=== PATIENT | male | born 1985 | race Caucasian/White ===

== ENCOUNTER 2018-03-31 13:17 | Emergency (ER) | payer MEDICAID ==
[2018-03-31] MEDS ORDERED: 0.9 % SODIUM CHLORIDE 1,000 ML BAG IV ONE (13:40)
[2018-03-31] MEDS ORDERED: ACETAMINOPHEN 1,000 MG/100 ML BTL IVPB ONE (13:44)
--- NOTE | 2018-03-31 13:44 | Emergency Department Record ---
History of Present Illness - General Chief Complaint: Chest Pain Stated Complaint: CHEST PAIN Time Seen by Provider: 03/31/18 13:33 Source: Patient Mode of Arrival: Stretcher Limitations: No limitations - History of Present Illness Initial Comments: The patient is here due to possibly passing out at home an hour ago or so. He had recently run out of his Methadone that he takes for chronic chest pain and developed R sided sharp stabbing pain. He then felt like he was warm all over and lightheaded and called 911. He later thinks he may have woke up on the floor. There is no reported head injury or neck pain. He also denied any SOB, RONN, or sweating. The patient has no cardiac hx but has been nauseated since running out of his narcotics. MD Complaint: Chest pain Onset/Timin -: Hour(s) Pain Location: Substernal Severity scale (1-10): 3 Quality: Dull Consistency: Constant Improves With: Nothing Worsens With: Nothing - Related Data Allergies Allergy/AdvReac Type Severity Reaction Status Date / Time amoxicillin trihydrate Allergy RASH Verified 03/31/18 13:32 [From Augmentin] potassium clavulanate Allergy RASH Verified 03/31/18 13:32 [From Augmentin] Travel Screening - Travel/Exposure Within Last 30 Days Have you traveled within the last 30 days?: No - Travel/Exposure Within Last Year Have you traveled outside the [place] in the last year?: No - Additonal Travel Details Have you been exposed to anyone with a communicable illness?: No - Travel Symptoms Symptom Screening: None Review of Systems Constitutional: Denies: Chills, Fever Eyes: Denies: Eye discharge ENT: Denies: Congestion Respiratory: Denies: Cough, Dyspnea Past Medical History - SOCIAL HISTORY Smoking Status: Current every day smoker Alcohol Use: Rare Drug Use: Occasional Drug Use Detail:: Marijuana - RESPIRATORY Hx Respiratory Disorders: Yes Hx Pneumonia: Yes - CARDIOVASCULAR Hx Cardio Disorders: No - NEURO Hx Neuro Disorders: Yes Hx Headaches: Yes Comment:: right rib injury when younger-"feels like sharp pain rubs on nerve" - GI Hx GI Disorders: Yes Hx Wt Loss/Wt Gain: Yes (50 lbs gain "over a few yrs") - Hx Genitourinary Disorders: No - ENDOCRINE Hx Endocrine Disorders: No - MUSCULOSKELETAL Hx Musculoskeletal Disorders: Yes - PSYCH Hx Psych Problems: No - HEMATOLOGY/ONCOLOGY Hx Hematology/Oncology Disorders: No Family Medical History Any Significant Family History?: No Hx Seizures: Mother *Seizure Comment: nonepileptic Physical Exam - General General Appearance: Alert, Oriented x3, Cooperative, No acute distress - Head Head exam: Atraumatic, Normocephalic, Normal inspection - Eye Eye exam: Normal appearance, PERRL, EOMI - ENT Throat exam: Normal inspection. negative: Tonsillar erythema, Tonsillar exudate - Neck Neck exam: Normal inspection, Full ROM. negative: Tenderness - Respiratory Respiratory exam: Normal lung sounds bilaterally, Chest wall tenderness (The R anterior chest wall tenderness is very reproducible to palpation.). negative: Respiratory distress - Cardiovascular Cardiovascular Exam: Regular rate, Normal rhythm, Normal heart sounds - GI/Abdominal GI/Abdominal exam: Soft, Normal bowel sounds. negative: Tenderness - Extremities Extremities exam: Normal inspection, Full ROM, Normal capillary refill. negative: Calf tenderness, Pedal edema, Tenderness - Neurological Neurological exam: Alert, Normal gait, Oriented X3. negative: Abnormal gait, Altered, Motor sensory deficit - Psychiatric Psychiatric exam: negative: Anxious, Depressed Course Vital Signs 03/31/18 13:22 Temperature 98.1 F Pulse Rate 81 Respiratory 18 Rate Blood Pressure 146/99 Pulse Ox 100 - Reevaluation(s) Reevaluation #1: The patient is resting more comfortably at this time. He is still having his chronic CP and does still have very significant chest wall tenderness over his sternum. 03/31/18 16:16 Reevaluation #2: The patient is doing very well at this time. He is up walking with no problems and is very hemodynamically stable. He has had no further dizziness or lightheadedness but still has the significant chest wall pain. His 2nd EKG is normal also. Due to his evaluation not demonstrating any serious cause for his issues he is very stable for discharge. 03/31/18 17:40 Reevaluation #3: 2nd EKG: NSR at 78, Neg ST-T changes, Normal EKG. 03/31/18 17:42 Reevaluation #4: I did give the patient 2 0.5 mg Ativan pills for home. He is to take them for anxiety and understands that he is not to drive or work taking them. 03/31/18 17:44 Medical Decision Making - Data Complexity MDM Data: Labs Ordered and/or Reviewed, X-Ray Ordered and/or Reviewed, EKG Ordered and/or Reviewed - Lab Data Result diagrams: 03/31/18 13:30 03/31/18 13:30 - EKG Data -: EKG Interpreted by Me (NSR, borderline T changes anterior leads.) - Radiology Data Radiology results: Report reviewed (CXR: Neg per Rad.) Disposition Disposition: Discharge Clinical Impression: Anxiety Disposition: Home, Self-Care Condition: (2) Stable Instructions: Anxiety (ED) Additional Instructions: Please rest and take the Ativan as directed. Please see your family doctor for recheck tomorrow. Return to the ER for any worsening symptoms, pain, dizziness or any further episodes of passing out. Forms: Patient Portal Access Time of Disposition: 17:43 Quality - Quality Measures Quality Measures: N/A - Blood Pressure Screening View Details: Yes Does Patient Have Any of the Following: No Blood Pressure Classification: Hypertensive Reading Systolic Measurement: 146 Diastolic Measurement: 99 Screening for High Blood Pressure: < First Hypertensive BP, F/U Documented > [ [id number]] First Hypertensive Follow-up Interventions: Referral to alternative/primary care provider.
[2018-03-31 14:04] LABS: BASO % 0.2 % (0-6); EOS % 0.5 % (0-6); GRAN % 75.3 % (47-80); HEMOGLOBIN 15.1 gm/dl (14.0-18.0); LYMPH % 17.4 % (16-45); MEAN CELL VOLUME 92.6 fl (81-97); MEAN CORPUSCULAR HEMOGLOBIN 31.1 pg (27-33); MEAN CORPUSCULAR HGB CONC 33.6 g/dl (32-36); MEAN PLATELET VOLUME 11.6 fl (7.4-10.4); MONO % 6.6 % (0-9); PLATELET COUNT 291 K/uL (130-400); RED BLOOD COUNT 4.86 M/uL (4.40-5.70); RED CELL DISTRIBUTION WIDTH 12.5 % (11.5-14.5); WHITE BLOOD COUNT W/O DIFF 9.5 K/uL (4.2-12.2)
[2018-03-31 14:16] LABS: BLOOD UREA NITROGEN 14 mg/dL (6-20); CREATININE 0.7 mg/dL (0.7-1.2); EST GLOMERULAR FILTRATION RATE > 60 mL/min
[2018-03-31 14:17] LABS: TOTAL PROTEIN 7.4 g/dL (6.6-8.7)
[2018-03-31 14:19] LABS: GLUCOSE,RANDOM 97 mg/dL (74-109)
[2018-03-31 14:21] LABS: ALT/SGPT 17 U/L (<41)
[2018-03-31 14:22] LABS: ALB/GLOB RATIO 1.5 (1.1-1.8); ALBUMIN 4.4 g/dL (4.0-5.0); ALKALINE PHOSPHATASE 81 U/L (40-129); AST/SGOT 14 U/L (10.0-50.0); CREATINE PHOSPHOKINASE 110 U/L (39-308)
[2018-03-31 14:24] LABS: CKMB 1.3 ng/mL (<6.73)
[2018-03-31] MEDS ORDERED: LORAZEPAM 0.5 MG TABLET PO ONE ×2 (14:34→17:44)
[2018-03-31 15:08] LABS: BARBITURATE SCREEN URINE NOT DETECTED; TRICYCLIC ANTIDEPRESSANT SCRN NOT DETECTED
[2018-03-31 15:09] LABS: AMPHETAMINE SCREEN URINE NOT DETECTED; BENZODIAZEPINE SCREEN URINE NOT DETECTED; COCAINE SCREEN URINE NOT DETECTED; METHADONE SCREEN URINE DETECTED; METHAMPHETAMINE SCREEN NOT DETECTED; OPIATE SCREEN URINE NOT DETECTED; OXYCODONE SCREEN URINE NOT DETECTED; PHENCYCLIDINE SCREEN URINE NOT DETECTED; PROPOXYPHENE SCREEN URINE NOT DETECTED; THC SCREEN URINE DETECTED
[2018-03-31] MEDS ORDERED: KETOROLAC 30 MG/ML VIAL IVP ONE (16:14)
[2018-03-31] MEDS ORDERED: KETOROLAC 30 MG/ML VIAL IM ONE (16:17)
--- NOTE | 2018-04-01 13:46 | RADIOLOGY REPORT ---
EXAM: CHEST, TWO VIEWS HISTORY: CHEST PAIN AND SYNCOPE. TECHNIQUE: Two views of the chest were obtained. Comparison: None. FINDINGS: Telemetry leads overlie the chest. The cardiomediastinal silhouette is unremarkable. The lungs and pleural spaces are clear. IMPRESSION: NO ACUTE CARDIOPULMONARY ABNORMALITY. JOB NUMBER: [id number] MTDD
== END 2018-03-31 17:58 | disposition home or self-care (01) ==
LOC: ER 13:17
DX: F41.9 Anxiety disorder, unspecified (principal); R07.2 Precordial pain; R42 Dizziness and giddiness; R11.0 Nausea; F17.210 Nicotine dependence, cigarettes, uncomplicated
CPT/HCPCS: 99284 ×2; 96372; 96365; 82550; 85025; 82553; 80053; 80305; 84484; 71046; 93005; 93010; J1885; J7030